=== PATIENT | female | born 1995 | race Caucasian/White ===

== ENCOUNTER 2018-04-30 00:39 | Emergency (ER) | payer OTHER, SELFPAY ==
[2018-04-30 00:40] VITALS: BP 121/83; PULSE 68; RESP 14; TEMP 36.8; O2SAT 99; BMI 28.6
[2018-04-30 00:42] VITALS: PULSE 72; RESP 13; O2SAT 98; O2SAT 99
--- NOTE | 2018-04-30 00:57 | EKG12_ITS ---
Test Reason : CHEST PRESSURE Blood Pressure : / mmHG Vent. Rate : 070 BPM Atrial Rate : 070 BPM P-R Int : 172 ms QRS Dur : 090 ms QT Int : 382 ms P-R-T Axes : 060 081 046 degrees QTc Int : 412 ms Normal sinus rhythm with sinus arrhythmia Normal ECG No previous ECGs available Confirmed by MIGUE LOCKHART ([id number]), senior editor LETICIA HULL ([id number]) on 05/12/2018 2:10:27 PM Referred By: ERYN Confirmed By:MIGUE LOCKHART
--- NOTE | 2018-04-30 00:57 | RAD_ITS ---
STUDY: X-RAY CHEST REASON FOR EXAM: Female, 23 years old. Chest pressure. Dyspnea. TECHNIQUE: Frontal and lateral views of the chest. COMPARISON: None. FINDINGS: The lungs are clear and expanded. There is no demonstrated pleural abnormality. Normal size heart. Normal mediastinum and landon. Normal visualized pulmonary arteries. Normal visualized aortic arch and descending thoracic aorta. Normal visualized thoracic spine. Normal visualized ribs, clavicles, and shoulders. There is no demonstrated abnormality of the visualized soft tissue structures of the upper abdomen. RAD/Chest PA and Lateral IMPRESSION: Normal x-ray examination of the chest. Electronically Signed: Jules Muhammad MD at 1:52 EDT , Service support ,
[2018-04-30] MEDS: Ondansetron 4 MG/2 ML Vial IV (01:18)
[2018-04-30 01:54] LABS: D-Dimer Quantitative (DVT/PE) 0.37 FEU/ug/m (0.27-0.49)
--- NOTE | 2018-04-30 02:18 | ED.VISSUMM ---
- ER Visit Summary Date of Service: 04/30/18 Chief Complaint: Patient was brought to the emergency department by her mother for acute shortness of breath with chest tightness and chest pain located centrally and left of the sternum. History of Present Illness: The patient is a 23 F who presents because abrupt onset of chest pain or shortness of breath. She denies any URI symptoms presently or in the past month. She is on control pills. She has no history of PE or DVT. There is family history of hypercoagulable state and specifically factor V Leiden deficiency with family members having both PE and DVT. She denies any leg pain, swelling discoloration. She denies headache, visual, ocular auditory symptoms. There is no history of trauma. She denies any GI or symptoms. She denies any skin lesions. Please read written note for complete detail Physical Examination: Vital signs are marked for slight elevation blood pressure. Not febrile nor is she hypoxic. Head is atraumatic normocephalic. Pupils are equal round reactive. Extraocular muscles are intact. TMs are pearly white with landmarks noted. Nares patent with no drainage. Posterior pharynx without erythema or exudate. Uvula is midline. There is no dysphonia or dysphasia. Trachea is midline. There is no stridor with auscultation of the neck. Heart is regular without murmur, gallop or rub. S1 and S2 are normal. Lungs are clear to auscultation with good movement of air bilaterally. There is reproducible chest pain left fourth fifth intercostal space. Abdomen is soft nontender. Bowel sounds are present normal. There is no tenderness right upper quadrant and no clinical Shelton sign. There is no CVA tenderness noted. There is no asymmetry, swelling, discoloration, leg vein distention, palpable cords or tenderness along the distribution of the deep venous system. Test Results: D-dimer is normal. Two-view chest x-ray interpreted by me as normal. Cardiac silhouette and mediastinum normal. Lung parenchyma normal. Osseous structures are normal. EKG was obtained and revealed a sinus rhythm rate of 70 and is normal. There is evidence of respiratory variation. This was obtained per nurse protocol. Emergency Department Course and Treatment: EKG was obtained per nurse protocol. Since patient is not PERC negative d-dimer was obtained. Chest x-ray was obtained as well since she complains of shortness of breath with a pleuritic component as well as reproducible muscle skeletal component. Treatment Plan: NSAIDs since there is no contraindication and workup is negative for pneumonia, and pulmonary embolus. Disposition: Discharged home in stable condition with mother Impression: 1. Left-sided pleuritic chest pain 2. Costochondritis This note was generated with [employer] dictation software. It may contain incorrect words, spelling, and punctuation that were not noted in review of the chart prior to signing ED Disposition - Plan for ED Patient: Chief Complaint: Shortness of Breath Instructions: ED Chest Pain Costochondritis, ED Chest Pain Pleurisy Referrals: Timbo Fulton MD [Primary Care Provider] - 3-5 Days if not improving Additional Instructions: Take 4 ibuprofen tablets every 8 hours for chest pain for the next 3-5 days.
[2018-04-30 02:48] VITALS: BP 102/67; PULSE 74; RESP 14; O2SAT 98
== END 2018-04-30 03:00 | disposition home or self-care (01) ==
LOC: ED 01:42
PROVIDERS: Emergency Provider Emergency Medicine; Family Provider Pediatrics; PCP Pediatrics
DX: M94.0 Chondrocostal junction syndrome [Tietze] (principal); Z83.2 Family history of diseases of the blood and blood-forming organs and certain disorders involving the immune mechanism
CPT/HCPCS: 71046; 85379; 93005; 96374; 99284; A4216; J2405

== ENCOUNTER 2024-07-05 10:45 | Inpatient (IN) | payer OTHER, SELFPAY ==
[2024-07-05] VITALS (33 sets, daily range): BP systolic 88–132; BP diastolic 43–83; PULSE 75–107; RESP 16–18; TEMP 36.2–37.4; O2SAT 91–100; BMI 39.5
[2024-07-05 11:43] LABS: Absolute Lymphocyte Count 2.09 X10^3/uL (0.83-4.51); Absolute Neutrophil Count 12.4 X10^3/uL (2.0-7.7); Basophil# 0.09 X10^3/uL; Basophil% 0.6 % (0-1); Eosinophil# 0.07 X10^3/uL; Eosinophils% 0.4 % (0-5); Hemoglobin 12.6 g/dL (12.0-15.0); Lymphocyte # 2.09 X10^3/ul (0.83-4.51); Lymphocyte % 13.3 % (19-41); Mean Corp Hgb Conc 33.2 g/dL (32-36); Mean Corpuscular Hgb 28.8 pg (27.0-32.0); Mean Corpuscular Volume 86.8 fL (81-99); Mean Platelet Vol. 9.4 fl (6.2-12.0); Monocyte# 0.63 X10^3/uL; NRBC Flagged by Analyzer 0 % (0-5); Neutrophil # 12.41 X10^3/uL (2.7-7.7); Platelet Count 211 K/mm3 (150-450); RBC Distribution Width CV 13.9 % (11.6-14.6); RBC Distribution Width SD 43.5 fl (35.1-43.9); Red Blood Count 4.38 M/mm3 (4.2-5.4); White Blood Count 15.7 K/mm3 (4.4-11.0)
[2024-07-05 12:22] LABS: Syphilis Antibodies Non-reactive
[2024-07-05] MEDS: fentaNYL-bupivacaine (epidural) 100 ML BAG EPIDURAL ×3 (12:25→22:43)
[2024-07-05] MEDS: Mag /Aluminum/Simeth WCH UDC 30 ML ORAL.SUSP PO (12:48)
[2024-07-05] MEDS: Lactated Ringers 1,000 ML 999 ML IV (12:49)
[2024-07-05] MEDS: Lactated Ringers 1,000 ML 200 ML IV ×3 (13:00→21:08)
[2024-07-05] MEDS: Acetaminophen 500 MG Tablet PO (13:10)
--- NOTE | 2024-07-05 13:36 | PCM.HP.OB ---
HPI - General General Date of Admission: 07/05/24 Date of Service: 07/05/24 Chief Complaint: labor HPI Narrative GEOFF WESLEY, is a 29 F who presents 1 para 0 at 39-2/7 weeks gestation complaining contractions started over 24 hours ago. They were irregular throughout the day yesterday. They became more intense at night she had trouble sleeping last night. She presented to the office this morning tearful with significant pain with the contractions and was found to be 3 cm 90% effaced and was sent over to labor and delivery to be admitted. Maternal Data Information Final YUNI: 07/10/24 Gestational age: 39 2/7 PFSH PFSH Home Medications ?Medication ?Instructions ?Recorded ?Last Taken ?Type levonorgestrel-ethinyl estradiol 1 tab PO DAILY 04/30/18 Unknown History 0.1 mg-20 mcg tablet (Larissia) sulfamethoxazole 800 1 tab PO BID 04/30/18 Unknown History mg-trimethoprim 160 mg tablet Allergy/AdvReac Type Severity Reaction Status Date / Time No Known Allergies Allergy Verified 07/05/24 10:46 Surgical History (Updated 07/05/24 @ 13:14 by Marguerite Ramon) History of surgery Social History Smoking Status: Never smoker History Elective abortions Hx Para 0 Spontaneous abortions Hx # Term Pregnancies Ectopic pregnancies Hx # Pregnancies Multiple births # of living children ROS Constitutional Constitutional: Denies fatigue, fever(s) or malaise Eyes Eyes: Denies change in vision ENT HEENT: Denies dizziness or headache(s) Cardiovascular Cardiovascular: Denies chest pain, dyspnea or lightheadedness Respiratory/Chest Respiratory/Chest: Denies cough or dyspnea Gastrointestinal Gastrointestinal: Denies change in bowel habits Genitourinary Genitourinary: Denies burning urination or genital lesions Integumentary Integumentary: Denies rash Neurologic Neurologic: Denies confusion, dizziness, headache(s), numbness or weakness Vital Signs Vital Signs Vital Signs: 07/05/24 10:57 07/05/24 10:57 07/05/24 10:57 Temperature Temperature Source Temporal Pulse Rate 101 H Respiratory Rate Blood Pressure 118/63 BP Systolic 118 BP Diastolic 63 Pulse Ox 07/05/24 10:57 07/05/24 10:57 07/05/24 11:59 Temperature 97.6 F L Temperature Source Pulse Rate Respiratory Rate 16 Blood Pressure 114/81 H BP Systolic 114 BP Diastolic 81 Pulse Ox 07/05/24 11:59 07/05/24 12:02 07/05/24 12:02 Temperature Temperature Source Pulse Rate 99 96 Respiratory Rate Blood Pressure BP Systolic BP Diastolic Pulse Ox 99 07/05/24 12:05 07/05/24 12:05 07/05/24 12:07 Temperature Temperature Source Pulse Rate 100 95 Respiratory Rate Blood Pressure 122/83 H BP Systolic 122 BP Diastolic 83 Pulse Ox 07/05/24 12:07 07/05/24 12:10 07/05/24 12:10 Temperature Temperature Source Pulse Rate 90 Respiratory Rate Blood Pressure BP Systolic BP Diastolic Pulse Ox 99 93 07/05/24 12:11 07/05/24 12:11 07/05/24 12:12 Temperature Temperature Source Pulse Rate 95 93 Respiratory Rate Blood Pressure 132/65 H BP Systolic 132 BP Diastolic 65 Pulse Ox 07/05/24 12:12 07/05/24 12:15 07/05/24 12:15 Temperature Temperature Source Pulse Rate 104 H Respiratory Rate Blood Pressure 123/61 H BP Systolic 123 BP Diastolic 61 Pulse Ox 96 07/05/24 12:17 07/05/24 12:17 07/05/24 12:20 Temperature Temperature Source Pulse Rate 107 H Respiratory Rate Blood Pressure 115/60 BP Systolic 115 BP Diastolic 60 Pulse Ox 100 07/05/24 12:20 07/05/24 12:22 07/05/24 12:22 Temperature Temperature Source Pulse Rate 91 92 Respiratory Rate Blood Pressure BP Systolic BP Diastolic Pulse Ox 99 07/05/24 12:25 07/05/24 12:25 07/05/24 12:27 Temperature Temperature Source Pulse Rate 105 H 97 Respiratory Rate Blood Pressure 108/57 L BP Systolic 108 BP Diastolic 57 Pulse Ox 07/05/24 12:27 07/05/24 12:30 07/05/24 12:30 Temperature Temperature Source Pulse Rate 96 Respiratory Rate Blood Pressure 113/62 BP Systolic 113 BP Diastolic 62 Pulse Ox 99 07/05/24 12:32 07/05/24 12:32 07/05/24 12:35 Temperature Temperature Source Pulse Rate 100 Respiratory Rate Blood Pressure 112/67 BP Systolic 112 BP Diastolic 67 Pulse Ox 100 07/05/24 12:35 07/05/24 13:00 07/05/24 13:00 Temperature Temperature Source Pulse Rate 96 86 Respiratory Rate Blood Pressure 96/55 L BP Systolic 96 BP Diastolic 55 Pulse Ox 07/05/24 13:06 07/05/24 13:06 Temperature Temperature Source Pulse Rate 86 Respiratory Rate Blood Pressure 108/59 L BP Systolic 108 BP Diastolic 59 Pulse Ox Weight Weight: 98 kg Body Mass Index (BMI) 39.5 Physical Exam Const alert and no apparent distress General Appearance: cooperative HEENT normocephalic Resp normal respiratory effort Cardio regular rate GI soft to palpation GI Narrative: gravid, nontender, appropriate for gestational age Extremity no calf tenderness General Extremity: edema Skin no wounds Rashes: No rashes noted Psych activity/motor behavior normal Labs Labs Labs: Blood Type A NEGATIVE Antibody Screen NEGATIVE Hct 38.0 % (37-47) Hgb 12.6 g/dL (12.0-15.0) Syphilis Total Ab Non-reactive Assessment & Plan (1) Spontaneous onset of labor: PLAN: Patient admits for spontaneous labor at term. May have routine pain control measures as needed and as indicated. Estimated weight is less than 4500 g and pelvis clinically adequate to expect vaginal delivery. Artificial rupture membranes was performed with return of moderate amount of clear fluid. Will augment labor with Pitocin as needed. (2) 39 weeks gestation of :
[2024-07-05] MEDS: Oxytocin 15 Units/NS 250ml 15 UNITS/250 ML IV.SOLN 2 UNITS IV (15:50)
[2024-07-05] MEDS: Ondansetron 4 MG/2 ML Vial IV (17:19)
[2024-07-06] VITALS (43 sets, daily range): BP systolic 83–110; BP diastolic 42–67; PULSE 80–108; RESP 16–18; TEMP 36.4–37.7; O2SAT 89–100
--- NOTE | 2024-07-06 | PLAC_PTH ---
PATIENT: GEOFF WESLEY LOC: [facility] U#:[id number] AGE/SX: 29/F ROOM: [facility]021 RE07/05/[address]: Dr. Lily Andino MD : 1995 BED: 1 DIS: 07/07/2024 SPEC #: [id number] RECD: 07/06/24 08:47 STATUS: CATRACHO CHAVEZ #: [id number] MAC: 07/06/24 00:[address]: Lily Andino DEPT: SURGICAL PATHOLOGY RECD BY: Maurizio Scherer ENTERED: 07/06/24 11:19 SP TYPE: PLACENTA OTHR DR: Dr. Magdalena Alfonso MD No Primary Care Phys Tissues: Placenta, NOS Procedures: Surgery Specimen Level V HEADER OPERATION: Vaginal delivery PRE-OP DIAGNOSIS: resuscitation TISSUE SUBMITTED: Placenta MICROSCOPIC DIAGNOSIS Placenta: Placental disc - third trimester placenta (468 gm), bilobated. Membranes - Acute chorioamnionitis. Umbilical cord - three blood vessels and moderate acute funisitis. SJ: 07/08/2024 MICROSCOPIC DESCRIPTION Slides are reviewed. GROSS DESCRIPTION SPECIMEN: PLACENTA / CLINICAL INFORMATION: A. Weight: 2.925 kg B. Gestational Age: 39 weeks C. Sex: Female PLACENTAL WEIGHT (POST FIXATION): 468 gm PLACENTAL DIMENSIONS: 23.0 x 17.0 x 3.0 cm PLACENTAL SHAPE: Bilobated PLACENTAL WEIGHT FOR GESTATIONAL AGE: Within 10-99th percentile MEMBRANES - Present A. Insertion: Marginal B. Site of rupture from edge: 6.0 cm from edge of placental disc C. Color of membrane: Estevez-jurado D. Abnormalities: None UMBILICAL CORD - Present A. Color: Estevez-jurado B. Insertion: Central C. Length: 41.0 cm D. Diameter: 1.2 cm E. Number of vessels: Three F. Abnormalities: None PLACENTAL DISC - Present A. Color of surface: Estevez-jurado B. surface abnormalities: None C. Maternal cotyledons: Intact with minimal tear D. Attached retro placental clot: No clot E. Cut surface: Dark red and spongy F. Lesions: None G. Separate clot: Absent SECTIONS SUBMITTED: (6 cassettes) 1. Membrane roll 2. Cord, maternal end 3. Cord, end 4. Placental disc, and maternal surfaces 5. Placental disc, and maternal surfaces 6. Placental disc, and maternal surfaces SJ. 07/07/2024 TC:2 CPT: 81086
[2024-07-06] MEDS: Lactated Ringers 1,000 ML 200 ML IV (01:59)
--- NOTE | 2024-07-06 04:51 | EX.PCM.OBRPT ---
Assessment & Plan (1) (spontaneous vaginal delivery): Maternal Data Information Final YUNI: 07/10/24 Gestational age: 39 3/7 Vaginal Delivery Maternal Presentation Maternal Presentation: Active Labor Operative Information Date of Procedure: 07/06/24 Pre-Operative Diagnosis: labor Post-Operative Diagnosis: same Surgery / Procedure Performed: Spontaneous Vaginal Delivery Type of Anesthesia: Epidural Drain: Lewis to straight drain Estimated Blood Loss: 200 Time of Delivery: 04:31 Findings Description of Procedure: A vigorous female was delivered CAHNTELLE over an intact perineum. A loose nuchal cord ?1 was easily reduced. The remainder the infant was delivered with maternal pushing and gentle traction only in less than 15 seconds. The Pitocin infusion was initiated for active management of the third stage. The cord was clamped and cut after approximately 35 seconds because the was not immediately vigorous. It was transferred to the warmer for assessment by the nursing team. The hearing care professional was called after PPV was initiated. The infant was attended to by the waiting nursing staff. The placenta was delivered spontaneously and intact. The cervix and vagina were intact. Sponge and needle counts were correct. A vaginal sweep was completed by me. Apgars were not available at the time of this dictation. Presentation: CHANTELLE Amniotic Membrane Rupture Type: Artificial Amniotic Fluid Description: Clear Placental Delivery Description: Spontaneous Placenta Disposition: Sent to Pathology Cord Vessel Description: 3 Vessels Cord Entanglement: Around neck x 1, loose Nuchal Cord Compression: Without compression Cord Gases: ABG and VBG A Gender: Female (Shama) Delayed Cord Clamping: No Post Vaginal Delivery Medications Given After Delivery: IV Pitocin Episiotomy Description: None Laceration: None Complication Complications: None
[2024-07-06] MEDS: Oxytocin 15 Units/NS 250ml 15 UNITS/250 ML IV.SOLN 83 UNITS IV (05:05)
[2024-07-06] MEDS: 0.9% Saline Lock 10 ML Syringe IV (08:43)
[2024-07-06] MEDS: Rho(D) Immune Globulin 300 MCG (1500 Unit) Syringe IV (09:19)
[2024-07-06] MEDS: Acetaminophen 500 MG Tablet 1000 MG PO ×2 (15:31→22:43)
[2024-07-07] VITALS (8 sets, daily range): BP systolic 101–112; BP diastolic 64–75; PULSE 76–81; RESP 16; TEMP 36.4–36.9; O2SAT 80–98
[2024-07-07 05:48] LABS: Pathology Specimen OB SEE PATHOLOGY REPORT
--- NOTE | 2024-07-07 08:36 | PCM.PROGNOTE ---
Subjective Subjective patient seen at bedside, doing well. Patient reports good pain control. lochia mild. breast feeding w/o complications Objective Data Objective Data Vital Signs: Vital Signs Temp Pulse Resp BP Pulse Ox O2 Del Method 98.4 F 80 16 101/64 97 Room Air 07/07/24 07:43 07/07/24 07:43 07/07/24 07:43 07/07/24 07:43 07/07/24 07:43 07/07/24 07:43 Oxygen Delivery Method Room Air Weight: 98 kg Body Mass Index (BMI) 39.5 Intake & Output: Intake and Output for Last 24 Hours 07/05/24 07/06/24 07/07/24 23:59 23:59 23:59 Intake Total 2669.56 / 2669.56 1930.44 / 1930.44 Output Total 800 / 800 Balance 2669.56 / 2669.56 1130.44 / 1130.44 Lab / Micro Data 07/05/24 11:30 Physical Exam Narrative abd: fundus firm Const alert and oriented x3 General Appearance: cooperative HEENT normocephalic Neck General: normal visual inspection GI soft to palpation and non-distended GI Narrative: Fundus firm Extremity normal to inspection and no calf tenderness Skin no rashes or lesions noted Neuro oriented x3 and CN's II-XII intact bilaterally Psych mental status grossly normal Assessment & Plan Assessment/Plan (1) (spontaneous vaginal delivery): PLAN: Plan PPD#1 , Doing well Routine care pain mgmt ambulation dc home
--- NOTE | 2024-07-07 08:38 | DCINST_ITS ---
Discharge Instructions Diet Discharge Diet: No restrictions Activity May resume sexual activity in: 6-8 weeks Dressing / Incision Call your doctor if you observe: Fever of 101 or Higher, Inability to urinate, Using more than 1 pad per hour and Uncontrolled pain Follow Up Care Please Follow Up With: Magdalena Alfonso MD When: 1-2 weeks post and again at 6 weeks post . [phone] Test Results: Test results from this visit will be discussed in further detail at your follow- up appointment, if applicable. Discharge Plan Admission Admit Date/Time: 07/05/24 10:45 Attending Provider: Lily Andino Primary Care Provider: Care PhysicianKristine Primary Discharge Orders/Prescriptions Prescriptions: New acetaminophen 500 mg Tablet 1,000 mg PO Q6H PRN PRN (Reason: Pain 1-10 Or Fever) Qty: 0 0RF ibuprofen 600 mg Tablet 600 mg PO Q6H PRN PRN (Reason: Pain Score 1-10) Qty: 0 0RF Discontinued levonorgestrel-ethinyl estrad [Larissia] 0 tablet 1 tab PO DAILY Patient Comments: sulfamethoxazole-trimethoprim 1 TABLET tablet 1 tab PO BID Referrals / Follow Up: Care Physician,Kristine Primary [Primary Care Provider] - Disposition Disposition (needs filled in before D/C Order can be placed): Home, Self Care
== END 2024-07-07 12:25 | disposition home or self-care (01) | DRG 807 ==
PROVIDERS: Admitting Provider Obstetrics & Gynecology; Referring Provider Obstetrics & Gynecology; Visit Provider Obstetrics & Gynecology
DX: O69.81X0 Labor and delivery complicated by cord around neck, without compression, not applicable or unspecified (principal); Z37.0 Single live birth; Z3A.39 39 weeks gestation of pregnancy
CPT/HCPCS: 59025; 59050; 85025; 85461; 86780; 86850; 86900; 86901; 88307; 90384; 99221; J7120; A4216; G0378; J2405; J2790; J2791

== ENCOUNTER 2024-07-23 19:25 | Emergency (ER) | payer OTHER, SELFPAY ==
[2024-07-23 19:27] VITALS: BP 110/80; PULSE 84; RESP 16; TEMP 36.8; O2SAT 99; BMI 33.7
--- NOTE | 2024-07-23 20:01 | US_ITS ---
INDICATION: vaginal bleeding 2 weeks post EXAMINATION: Ultrasound US Pelvis Non-OB Complete COMPARISON: None. FINDINGS: 54 grayscale ultrasound images of the pelvis obtained transabdominally only. UTERUS: Uterus measures : 9.9 x 8.8 x 5.2 cm. Irregularly marginated anechoic cystic structure centrally within the thickened endometrium without significant vascular flow by color Doppler. Myometrium is unremarkable. ADNEXA:Bilateral ovaries are not visualized secondary to overlying bowel gas. URINARY BLADDER: Adequately distended urinary bladder without obvious abnormality, 146 cc volume. No significant free fluid. US/Pelvic (Non ) IMPRESSION: Irregularly marginated anechoic cystic structure centrally within the thickened endometrium without significant vascular flow by color Doppler. While this may simply represent hemorrhagic fluid within endometrial cavity, cannot exclude retained products of conception on this transabdominal only examination. Bilateral ovaries are not visualized. Electronically Signed: Сергей Pascual MD at 21:53 EDT ,
--- NOTE | 2024-07-23 20:18 | ED.VIS.FEGU ---
HPI <SIMEON Watkins - Last Filed: 07/23/24 22:27> HPI - Female History of Present Illness Chief Complaint: Vag Bld, Preg Narrative Narrative: Patient is a 29-year-old female with no specific medical problems who presents to the emergency department for vaginal bleeding, feeling of dizziness 2 weeks . Patient is a 1 para 1, patient states that the delivery was uneventful. Patient states that she is breast-feeding, she was having some discomfort the left lower quadrant, that has been ongoing for the several weeks. Patient is she then had some vaginal bleeding, she states there was a clot the size of her thumb, she then felt dizzy and called her REINSURANCE ACCOUNTANT. He referred her to the [facility] apartment. PFSH <SIMEON Watkins - Last Filed: 07/23/24 22:27> [facility] Home Medications ?Medication ?Instructions ?Recorded ?Last Taken ?Type acetaminophen 500 mg tablet 1,000 mg (2 x 500 mg) PO Q6H PRN 07/07/24 Unknown Rx PRN Pain 1-10 Or Fever #0 tabs ibuprofen 600 mg tablet 600 mg PO Q6H PRN PRN Pain Score 07/07/24 Unknown Rx 1-10 #0 tabs prednisone 20 mg tablet 40 mg (2 x 20 mg) PO DAILY 4 days 07/23/24 Unknown Rx #8 tabs Allergy/AdvReac Type Severity Reaction Status Date / Time No Known Allergies Allergy Verified 07/23/24 19:27 Surgical History History of surgery Social History Smoking Status: Never smoker ROS <SIMEON Watkins - Last Filed: 07/23/24 22:27> ROS ED ROS Narrative Constitutional: Negative for fever, chills, weight loss, weakness Eyes: Negative for vision loss, vision change, double vision ENT: Negative for any sore throat, ear pain, congestion Cardiovascular: Negative for any chest pain, tightness, palpitations Respiratory: Negative for any cough, sputum production, hemoptysis, dyspnea, dyspnea on exertion, orthopnea Gastrointestinal: Negative for any abdominal pain, nausea, vomiting, diarrhea, constipation, blood in stool, blood in vomit : Negative for any urinary frequency, dysuria, retention, blood in urine. Positive for vaginal bleeding Muscle skeletal: Negative for any neck pain, back pain Neurological: Negative for any headache, syncope. Positive dizziness Skin: Negative for any abrasions, lacerations. Patient is of a hive-like rash to the arms, legs as well as back Psychiatric: Negative for any depression, anxiety, stress, suicidal ideation, homicidal ideation Hematologic: Negative for any excessive bruising, easy bleeding EXAM <SIMENO Watkins - Last Filed: 07/23/24 22:27> Physical Exam Const Vital Signs: 07/23/24 19:27 07/23/24 21:26 Temperature 98.2 F Temperature Source Oral Pulse Rate 84 66 Respiratory Rate 16 18 Blood Pressure 110/80 122/71 H Blood Pressure Mean 90 88 Pulse Ox 99 98 Oxygen Delivery Method Room Air Room Air <Dr. Saul Johnson DO - Last Filed: 07/23/24 23:20> Physical Exam Const Vital Signs: 07/23/24 19:27 07/23/24 21:26 Temperature 98.2 F Temperature Source Oral Pulse Rate 84 66 Respiratory Rate 16 18 Blood Pressure 110/80 122/71 H Blood Pressure Mean 90 88 Pulse Ox 99 98 Oxygen Delivery Method Room Air Room Air [facility] <SIMEON Watkins - Last Filed: 07/23/24 22:27> [facility] Lab Data Labs: Laboratory Results - last 24 hr 07/23/24 07/23/24 20:05 21:20 WBC 9.8 RBC 4.63 Hgb 13.2 Hct 40.2 MCV 86.8 MCH 28.5 MCHC 32.8 RDW Std Deviation 39.9 RDW Coeff of Charly 12.6 Plt Count 277 MPV 9.1 Immature Gran % (Auto) 0.200 Neut % (Auto) 45.1 L Lymph % (Auto) 37.7 Chaves % (Auto) 6.1 Eos % (Auto) 10.1 H Baso % (Auto) 0.8 Absolute Neuts (auto) 4.4 Absolute Lymphs (auto) 3.69 Nucleated RBC % 0 Sodium 140 Potassium 3.5 Chloride 108 H Carbon Dioxide 26.0 Anion Gap 7 BUN 12 Creatinine 1.03 H Estim Creat Clear Calc 82.29 Est GFR (MDRD) Af Amer 83 Est GFR (MDRD) Non-Af 68 BUN/Creatinine Ratio 11.7 Glucose 85 Calcium 8.8 Total Bilirubin 0.40 AST 17 ALT 22 Alkaline Phosphatase 107 Total Protein 7.2 Albumin 3.3 Globulin 3.9 Albumin/Globulin Ratio 0.8 L Urine Color Yellow Urine Clarity Sl. Cloudy Urine pH 6.0 Ur Specific Cosby 1.010 Urine Protein 15 H Urine Glucose (UA) Normal Urine Ketones 5 H Urine Occult Blood 250 H Urine Nitrite Negative Urine Bilirubin Negative Urine Urobilinogen Normal Ur Leukocyte Esterase 500 H Urine RBC 10-25 SEEN Urine WBC 0-5 SEEN Ur Squamous Epith Cells 0-5 SEEN Urine Bacteria 1+ Urine Mucus 0 SEEN Radiography Diagnostic Testing: Clinical Impression(s) from Imaging Studies Pelvis Ultrasound 07/23/24 20:01 IMPRESSION: Irregularly marginated anechoic cystic structure centrally within the thickened endometrium without significant vascular flow by color Doppler. While this may simply represent hemorrhagic fluid within endometrial cavity, cannot exclude retained products of conception on this transabdominal only examination. Bilateral ovaries are not visualized. Electronically Signed: Сергей Pascual MD at 21:53 EDT , Treatment and Re-Evaluation Narrative: Differential diagnosis includes however is not limited to: Retained product, ovarian cyst, ovarian torsion, dysmenorrhea, Patient appears generally well, vital signs are stable, patient is nontoxic-appearing. Presenting to the emergency department with complaints of vaginal bleeding, left lower suprapubic pain and some dizziness. Patient was complains of some rash. The rash does appear to be hive-like, this will be treated with prednisone. This is safe with breast-feeding. Patient will receive basic laboratory values as well as 1 L of normal saline. Patient will receive a transvaginal ultrasound. I spoke with the animal technician, they might either do it transabdominal versus trans vaginal, all radiologic examinations were read, reviewed by the emergency department attending. From these reads, a plan of care will be put in place. Patient CBC was unremarkable, hemoglobin is 13.2, chemistries were unremarkable. Patient's urinalysis showed 1+ bacteria 500 leukocytes, 10-25 red blood cells, 0-5 white blood cells, negative nitrates, patient has no urinary symptoms, this will be sent for culture. Patient's ultrasound shows irregularity marginated anechoic cystic structure centrally within the thickening endometrium without significant vascular flow by color Doppler. While this may simply represent hemorrhagic fluid, within endometrial cavity, cannot exclude retained products of conception on this transabdominal only examination. Secondary to this finding, I did reach out to [employer]OUNTANT the [address] Mattson. We went over the ultrasound together, we both believe the patient stable for discharge. She will follow-up closely the next 2 to 3 days. I spoke with the patient she is happy with the plan of care. For the hives, she replaced on 4 more days of 40 mg prednisone. Instructed return for any worsening symptoms. Patient stable for discharge. <Dr. Saul Johnson, DO - Last Filed: 07/23/24 23:20> [facility] Narrative Medical decision making narrative: I have personally performed a face to face assessment of the patient and have reviewed the DL Note. I performed a substantive portion of the visit including all aspects of the following. My magdaleno findings include: History: Patient presents with vaginal bleeding that began today. Patient states she had an increase in her bleeding today. Patient is 2 weeks . Patient states he passed a large clot. Patient states that she has been feeling lightheaded. Patient states that she has had some pain in her left adnexal area. Patient describes it as sharp. Patient states nothing makes her symptoms better nothing makes them worse. Patient denies any fevers or chills. Patient states she called her REINSURANCE ACCOUNTANT who referred her to the emergency department for further evaluation. Patient also complains of some generalized hives that have been getting worse over the past several days. Patient denies any difficulty breathing or difficulty swallowing. Patient states she did change laundry detergents and has been washing her clothes and the baby's clothes in the same load. Patient states she has never used this laundry detergent before. Exam: Vital signs are stable. Patient is afebrile. Patient is in no acute distress. Oral mucosa is pink and moist. Neck is supple. Trachea is midline. There is no JVD. Heart was regular rate and rhythm. Lungs are clear and equal bilaterally. Abdomen is soft. Bowel sounds are normal. There is some mild left lower quadrant tenderness. There is no rebound or guarding noted. Cranial nerves II through XII are intact. There are no focal motor or sensory deficits. Medical Decision Making: Differential diagnosis includes retained products of conception, ovarian cyst, bleeding, and dysmenorrhea. Pelvic ultrasound will be obtained to assess for retained products of conception and ovarian cyst. CBC will be obtained to assess for leukocytosis and anemia. Comprehensive metabolic profile will be obtained to assess for hepatic function, renal function, and electrolyte abnormality. Urinalysis will be obtained to assess for urinary tract infection and hematuria. Patient was given IV fluids. Patient was given a dose of prednisone for her hives. CBC was reviewed and was within normal limits. Comprehensive metabolic profile was reviewed and was within normal limits. Urinalysis was reviewed. Occult blood was 250 with 10-25 red blood cells. There is no evidence of urinary tract infection. Pelvic ultrasound was obtained. There is questionable retained products of conception versus hemorrhagic fluid in the uterus. The ovaries were not visualized. This was interpreted by the radiologist and was also independently reviewed by myself. Patient was advised of her findings. Case was discussed with Dr. Mattson. She will have the patient follow-up as an outpatient. Patient understood and was agreeable with the plan. All questions were answered. Lab Data Labs: Laboratory Results - last 24 hr 07/23/24 07/23/24 20:05 21:20 WBC 9.8 RBC 4.63 Hgb 13.2 Hct 40.2 MCV 86.8 MCH 28.5 MCHC 32.8 RDW Std Deviation 39.9 RDW Coeff of Charly 12.6 Plt Count 277 MPV 9.1 Immature Gran % (Auto) 0.200 Neut % (Auto) 45.1 L Lymph % (Auto) 37.7 Chaves % (Auto) 6.1 Eos % (Auto) 10.1 H Baso % (Auto) 0.8 Absolute Neuts (auto) 4.4 Absolute Lymphs (auto) 3.69 Nucleated RBC % 0 Sodium 140 Potassium 3.5 Chloride 108 H Carbon Dioxide 26.0 Anion Gap 7 BUN 12 Creatinine 1.03 H Estim Creat Clear Calc 82.29 Est GFR (MDRD) Af Amer 83 Est GFR (MDRD) Non-Af 68 BUN/Creatinine Ratio 11.7 Glucose 85 Calcium 8.8 Total Bilirubin 0.40 AST 17 ALT 22 Alkaline Phosphatase 107 Total Protein 7.2 Albumin 3.3 Globulin 3.9 Albumin/Globulin Ratio 0.8 L Urine Color Yellow Urine Clarity Sl. Cloudy Urine pH 6.0 Ur Specific Cosby 1.010 Urine Protein 15 H Urine Glucose (UA) Normal Urine Ketones 5 H Urine Occult Blood 250 H Urine Nitrite Negative Urine Bilirubin Negative Urine Urobilinogen Normal Ur Leukocyte Esterase 500 H Urine RBC 10-25 SEEN Urine WBC 0-5 SEEN Ur Squamous Epith Cells 0-5 SEEN Urine Bacteria 1+ Urine Mucus 0 SEEN Radiography Diagnostic Testing: Clinical Impression(s) from Imaging Studies Pelvis Ultrasound 07/23/24 20:01 IMPRESSION: Irregularly marginated anechoic cystic structure centrally within the thickened endometrium without significant vascular flow by color Doppler. While this may simply represent hemorrhagic fluid within endometrial cavity, cannot exclude retained products of conception on this transabdominal only examination. Bilateral ovaries are not visualized. Electronically Signed: Сергей Pascual MD at 21:53 EDT , Discharge Plan Triage Chief Complaint: Vag Bld, Preg Other Complaint: Itching ED Midlevel Provider: Delmar Wilson ED Provider: Saul Johnson Dx/Rx/DC Orders Clinical Impression: Abnormal vaginal bleeding, Urticaria Instructions: Understanding Uterine Bleeding, ED Hives (Adult) Prescriptions: New prednisone 20 mg tablet 40 mg PO DAILY 4 Days Qty: 8 0RF No Action acetaminophen 500 mg Tablet 1,000 mg PO Q6H PRN PRN (Reason: Pain 1-10 Or Fever) Qty: 0 0RF ibuprofen 600 mg Tablet 600 mg PO Q6H PRN PRN (Reason: Pain Score 1-10) Qty: 0 0RF Primary Care Provider: Care Physician,No Primary Referrals: Care Physician,No Primary [Primary Care Provider] - Activity Restrictions/Additional Instructions: Please follow-up outpatient. You should be getting a call from the REINSURANCE ACCOUNTANT office in the next couple days, of course return here for any worsening bleeding, worsening lower abdominal pain. Print Language: [place]an Disposition Disposition: Home, Self Care
[2024-07-23 20:26] LABS: Absolute Lymphocyte Count 3.69 X10^3/uL (0.83-4.51); Absolute Neutrophil Count 4.4 X10^3/uL (2.0-7.7); Basophil# 0.08 X10^3/uL; Basophil% 0.8 % (0-1); Eosinophil# 0.99 X10^3/uL; Eosinophils% 10.1 % (0-5); Hematocrit 40.2 % (37-47); Hemoglobin 13.2 g/dL (12.0-15.0); Lymphocyte # 3.69 X10^3/ul (0.83-4.51); Lymphocyte % 37.7 % (19-41); Mean Corp Hgb Conc 32.8 g/dL (32-36); Mean Corpuscular Hgb 28.5 pg (27.0-32.0); Mean Corpuscular Volume 86.8 fL (81-99); Mean Platelet Vol. 9.1 fl (6.2-12.0); Monocyte% 6.1 % (0-10); NRBC Flagged by Analyzer 0 % (0-5); Neutrophil % 45.1 % (47-70); Platelet Count 277 K/mm3 (150-450); RBC Distribution Width CV 12.6 % (11.6-14.6); RBC Distribution Width SD 39.9 fl (35.1-43.9); Red Blood Count 4.63 M/mm3 (4.2-5.4); White Blood Count 9.8 K/mm3 (4.4-11.0)
[2024-07-23 21:12] LABS: ALB/GLOB Ratio 0.8 RATIO (0.9-2.4); AST(SGOT) 17 U/L (15-37); Alanine Aminotransfer ALT/SGPT 22 U/L (13-56); Albumin, Serum 3.3 g/dL (3.2-5.0); Alkaline Phosphatase 107 U/L (45-117); Anion Gap 7 (5-15); BUN 12 mg/dL (7-18); BUN/Creat Ratio 11.7 RATIO (10-20); Calcium,Total 8.8 mg/dL (8.5-10.1); Chloride 108 mmol/L (98-107); Creatinine, Serum 1.03 mg/dL (0.55-1.02); EST Glomerular Filtration Rate 68 mL/min (>60); Est Glom Filt Rate - Afr Amer 83 mL/min (>60); Estimated Creatinine Clearance 82.29 ml/min; Globulin 3.9 g/dL (2.2-4.2); Glucose 85 mg/dL (74-106); Potassium 3.5 mmol/L (3.5-5.1); Protein, Total 7.2 g/dL (6.4-8.2); Sodium Level 140 mmol/L (136-145)
[2024-07-23] MEDS: 0.9% Normal Saline (1000mL) 1,000 ML 999 ML IV (21:18)
[2024-07-23] MEDS: predniSONE 20 MG Tablet 40 MG PO (21:18)
[2024-07-23 21:26] VITALS: BP 122/71; PULSE 66; RESP 18; O2SAT 98
[2024-07-23 21:33] LABS: Mucous, Urine 0 SEEN /hpf (<or=2+)
[2024-07-23 21:37] LABS: Color, Urine Yellow (Yellow); Glucose, Dipstick Normal (Normal); Ketone-Dipstick 5 mg/dl (Negative); Leukocyte Esterase-Dipstick 500 /ul (Negative); Nitrite-Dipstick Negative (Negative); Occult Blood-Urine 250 /ul (Negative); Protein-Dipstick 15 mg/dl (Negative); Urine Bilirubin Dipstick Negative (Negative); Urine Clarity Sl. Cloudy (Clear); Urine Urobilinogen Normal (Normal)
[2024-07-23 22:00] LABS: Bacteria 1+ /hpf (None Seen); Red Blood Cells-Urine 10-25 SEEN /hpf (0-5); White Blood Cells 0-5 SEEN /hpf (0-5)
[2024-07-23 22:01] LABS: Squamous Epithelial Cells - UA 0-5 SEEN /hpf (5-10)
[2024-07-23 22:40] VITALS: BP 155/80; PULSE 74; RESP 18; TEMP 36.4; O2SAT 98
== END 2024-07-23 22:41 | disposition home or self-care (01) ==
PROVIDERS: Nurse Practitioner; Emergency Provider Emergency Medicine; Visit Provider Emergency Medicine
DX: O72.2 Delayed and secondary postpartum hemorrhage (principal); O99.73 Diseases of the skin and subcutaneous tissue complicating the puerperium; L50.9 Urticaria, unspecified
CPT/HCPCS: 76856; 80053; 81001; 85025; 96360; 99284; J7030; A4216